=== PATIENT | female | born 1960 | race Caucasian/White ===

== ENCOUNTER 2016-10-22 11:53 | Emergency (ER) | payer OTHER ==
[~2016-10-22] VITALS: Ht 167.6 cm; Wt 97.1 kg
[2016-10-22 13:22] LABS: microscopic required? NO
[2016-10-22 13:42] LABS: urine erythrocyte NEGATIVE (NEGATIVE)
[2016-10-22 14:38] VITALS: BP 152/90
== END 2016-10-22 14:38 | disposition home or self-care (01) ==
LOC: ED 11:53
PROVIDERS: Emergency Medicine
DX: R10.31 Right lower quadrant pain (principal); M54.5 Low back pain; M79.7 Fibromyalgia; M06.9 Rheumatoid arthritis, unspecified
CPT/HCPCS: 36415

== ENCOUNTER 2017-11-24 17:22 | Emergency (ER) | payer OTHER ==
[~2017-11-24] VITALS: Ht 167.6 cm; Wt 98.0 kg
[2017-11-24 17:34] VITALS: Ht 167.6 cm; Wt 98.0 kg
[2017-11-24 19:16] VITALS: BP 160/98
== END 2017-11-24 19:16 | disposition home or self-care (01) ==
LOC: ED 17:22
DX: S43.401A Unspecified sprain of right shoulder joint, initial encounter (principal); M06.9 Rheumatoid arthritis, unspecified; Z87.442 Personal history of urinary calculi; M79.7 Fibromyalgia; X50.9XXA Other and unspecified overexertion or strenuous movements or postures, initial encounter; Y93.89 Activity, other specified; Y92.89 Other specified places as the place of occurrence of the external cause; Y99.8 Other external cause status
CPT/HCPCS: Q0092